=== PATIENT | male | born 2005 | race Caucasian/White ===

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

== ENCOUNTER 2023-08-24 08:39 | Emergency (ER) | payer MEDICAID, SELFPAY ==
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
[2023-08-24 08:52] VITALS: BP 173/82; PULSE 78; RESP 16; TEMP 36.5; O2SAT 100
--- NOTE | 2023-08-24 09:11 | W.ED.GENAD ---
HPI General Mode of arrival: ambulatory. Date/Time Provider Initiated Documentation: 08/24/23 08:42. Limitations to Documentation: no limitations. Information obtained by: patient. HPI Narrative: 17-year-old male presents with chief complaint of hand pain. Patient notes pain medial hand over his fifth metacarpal with associated deformity over the past approximately 1 year. Patient notes he punched a wall and injured his hand about a year ago. He did not seek care at that time. He notes continued pain in the area worse with certain positions and on palpation. He hit his hand while working on a car 3 days ago, reinjuring the area. No associated numbness or tingling. Related Data Home Medications Medication Instructions Recorded Confirmed levothyroxine 150 mcg tablet 150 mcg PO DAILY 08/24/23 08/24/23 losartan 100 mg tablet 100 mg PO DAILY 08/24/23 08/24/23 losartan 50 mg tablet 50 mg PO DAILY 08/24/23 08/24/23 Allergies Allergy/AdvReac Type Severity Reaction Status Date / Time No Known Allergies Allergy Unverified 08/24/23 08:50 General Stated Complaint: Orthopedic DAVID: 4 Review of Systems Musculoskeletal Musculoskeletal: Reports as per HPI Exam Extrem Right upper extremity: hand Details: normal capillary refill, neuromotor exam normal, neurosensory exam normal, tendon exam normal and tenderness (Fifth metacarpal with deformity) Course Vital Signs Vital signs: Vital Signs Temperature 36.5 C 08/24/23 08:52 Pulse 78 08/24/23 08:52 Respiratory Rate 16 08/24/23 08:52 Blood Pressure 173/82 H 08/24/23 08:52 Pulse Oximetry 100 08/24/23 08:52 Temperature 36.5 C 08/24/23 08:52 Temperature Source Temporal Artery Scan 08/24/23 08:52 Pulse 78 08/24/23 08:52 Respiratory Rate 16 08/24/23 08:52 Respiratory Effort Normal, Non-Labored 08/24/23 08:54 Blood Pressure 173/82 H 08/24/23 08:52 Blood Pressure Position Sitting 08/24/23 08:52 Pulse Oximetry 100 08/24/23 08:52 Oxygen Delivery Method Room Air 08/24/23 08:52 Oxygen Flow Rate 0 08/24/23 08:52 Pain Level 1 08/24/23 08:52 Procedures Orthopedic Splinting/Casting Injury #1: Side: right Upper Extremity Injury Location: hand Upper Extremity Immobilizer: ulnar gutter Additional Comments: Neurovascular intact post splint application Medical Decision Making 919 -- 17-year-old right-handed male here with deformity and pain of his right fifth metacarpal, associated tenderness, now chronic over the past 1 year since punching a wall. I suspect he sustained fracture during initial trauma. Patient received no treatment initially for fracture. Patient does note hitting his hand while working on motor vehicle 3 days ago. Consider acute fracture versus nonunion versus malunion. 959 --x-ray of the right hand interpreted by radiology: Further healing but still incompletely healed metacarpal fracture. Plan for ulnar gutter splint and follow-up with orthopedics. Patient was instructed no use of right hand until cleared. Quality:SDOH Health Related Social Needs: No Data to Display PFSH All Active Problems (Updated 08/24/23 @ 10:03 by Raf Dodge MD) Closed nondisplaced fracture of fifth right metatarsal bone (Acute) Internal derangement of left knee (Acute) Closed fracture of lateral portion of left tibial plateau (Acute 07/01/22) Fracture of fifth metacarpal bone of right hand (Acute 02/03/22) Social History Smoking/Tobacco Use Status: Current every day Tobacco Type: e-cigarettes Smoking risk assessment performed?: Yes Alcohol Intake: current Alcohol Intake frequency: a few times a month Drug use: Occasionally Substance use type: marijuana Housing: house Current gender identity: male Do you feel safe at home: Yes Do you feel safe in your relationship?: Yes Discharge Plan Disposition Patient Disposition: Home Condition: Stable Discharge Details Clinical Impression: Closed nondisplaced fracture of fifth right metatarsal bone Primary Care Provider: Unknown,Unknown ED Provider: Raf Dodge Home Meds and New Rx's Prescriptions: Continued levothyroxine 150 mcg tablet 150 mcg PO DAILY Patient Comments: take 1 tablet by mouth daily losartan 50 mg tablet 50 mg PO DAILY Patient Comments: TAKE 1 TABLET BY MOUTH EVERY DAY losartan 100 mg tablet 100 mg PO DAILY Patient Comments: TAKE 1 TABLET BY MOUTH EVERY DAY Discharge Instructions Instructions: Hand Fracture (ED) Additional Instructions: Keep splint clean, dry, and intact. Please contact orthopedics to arrange follow-up. Return to the ER immediately for any worsening or new concerning symptoms. Stand Alone Forms: Work Release Referrals: [facility] [Provider Group]
[2023-08-24 10:50] VITALS: BP 132/80; PULSE 79; RESP 20; O2SAT 97
== END 2023-08-24 10:52 | disposition home or self-care (01) ==
LOC: ER 10:55
PROVIDERS: Emergency Provider Student in an Organized Health Care Education/Training Program
DX: S62.396G Other fracture of fifth metacarpal bone, right hand, subsequent encounter for fracture with delayed healing (principal); F17.290 Nicotine dependence, other tobacco product, uncomplicated; W22.01XD Walked into wall, subsequent encounter
CPT/HCPCS: 29125; 99283; 73130

== ENCOUNTER 2023-09-07 13:08 | Outpatient (CLI) | payer MEDICAID, SELFPAY ==
--- NOTE | 2023-09-07 10:45 | DI.RAD_ITS ---
Exam(s) XR HAND RT COMPLETE EXAM: XR HAND RT COMPLETE CLINICAL HISTORY: F/U FRACTURE. TECHNIQUE: 2D digital imaging was performed. Three views. COMPARISON: CR XR HAND RT COMPLETE from 03/16/2022 CR XR HAND RT COMPLETE from 08/24/2023 FINDINGS: BONES: Increased lucency seen at 5th metacarpal fracture when compared with prior exam. No new fract ures. No bony destructive lesion is seen. JOINTS: No dislocation present. SOFT TISSUE: Normal. IMPRESSION: Increased lucency at 5th metacarpal fracture. DATA REPOSITORY: RADIATION DOSE DELIVERED:
== END 2023-09-07 13:09 | disposition home or self-care (01) ==
LOC: DIORS 13:08
PROVIDERS: Visit Provider Physician Assistant
DX: S92.354D Nondisplaced fracture of fifth metatarsal bone, right foot, subsequent encounter for fracture with routine healing (principal); X58.XXXD Exposure to other specified factors, subsequent encounter
CPT/HCPCS: 73130